=== PATIENT | male | born 1950 | race Caucasian/White ===

== ENCOUNTER 2019-10-02 06:59 | Outpatient (CLI) | payer OTHER, SELFPAY ==
[2019-10-02 08:19] LABS: Hemoglobin A1C 6.6 % (<5.7)
[2019-10-02 08:21] LABS: Alanine Aminotransferase 32 U/L (4-50); Albumin Level 4.3 g/dL (3.5-5.1); Alkaline Phosphatase 52 U/L (38-126); Aspartate Amino Transferase 27 U/L (17-59); Bilirubin,Total 0.4 mg/dL (0.2-1.3); Blood Urea Nitrogen 19 mg/dL (9-20); Calcium 9.4 mg/dL (8.4-10.2); Carbon Dioxide 28 mmol/L (22-30); Chloride 106 mmol/L (98-107); Cholesterol 174 mg/dL (0-200); Estimated Glomerular Filt Rate > 60; Glucose 124 mg/dL (75-110); HDL Direct 33 mg/dL; Potassium 3.8 mmol/L (3.4-5.0); Sodium 140 mmol/L (137-145); Triglycerides 322 mg/dL (<150)
[2019-10-02 08:32] LABS: LDL Cholesterol Direct 120 mg/dL
== END 2019-10-02 07:00 | disposition home or self-care (01) ==
PROVIDERS: PCP Family Medicine; Visit Provider Family Medicine
DX: D51.0 Vitamin B12 deficiency anemia due to intrinsic factor deficiency (principal); E03.9 Hypothyroidism, unspecified; E11.65 Type 2 diabetes mellitus with hyperglycemia; E78.2 Mixed hyperlipidemia; I10 Essential (primary) hypertension
CPT/HCPCS: 36415; 80053; 80061; 82607; 83036; 84443

== ENCOUNTER 2020-02-03 07:33 | Outpatient (CLI) | payer OTHER, SELFPAY ==
[2020-02-03 08:16] LABS: Alanine Aminotransferase 37 U/L (4-50); Albumin Level 4.6 g/dL (3.5-5.1); Alkaline Phosphatase 83 U/L (38-126); Aspartate Amino Transferase 29 U/L (17-59); Bilirubin,Total 0.5 mg/dL (0.2-1.3); Blood Urea Nitrogen 16 mg/dL (9-20); Calcium 9.6 mg/dL (8.4-10.2); Carbon Dioxide 29 mmol/L (22-30); Chloride 99 mmol/L (98-107); Cholesterol 212 mg/dL (0-200); Estimated Glomerular Filt Rate > 60; Glucose 120 mg/dL (75-110); HDL Direct 34 mg/dL; Potassium 3.9 mmol/L (3.4-5.0); Sodium 138 mmol/L (137-145); Triglycerides 516 mg/dL (<150)
[2020-02-03 08:27] LABS: LDL Cholesterol Direct 105 mg/dL
[2020-02-03 08:46] LABS: Creatinine Urine 12.5 mg/dL
[2020-02-03 08:58] LABS: Hemoglobin A1C 6.8 % (<5.7)
[2020-02-03 08:58] LABS: Microalbumin Urine Random < 6.0 mg/L (0-16.7)
== END 2020-02-03 07:34 | disposition home or self-care (01) ==
PROVIDERS: PCP Family Medicine; Visit Provider Family Medicine
DX: E11.9 Type 2 diabetes mellitus without complications (principal)
CPT/HCPCS: 36415; 80053; 80061; 82043; 83036

== ENCOUNTER 2020-05-07 06:56 | Outpatient (NON) | payer OTHER, SELFPAY ==
[2020-05-07 16:38] LABS: SARS-CoV-2 RNA PCR Negative
== END 2020-05-07 06:57 ==
PROVIDERS: Visit Provider Family Medicine
DX: Z20.828 Contact with and (suspected) exposure to other viral communicable diseases (principal)
CPT/HCPCS: 87635; C9803; U0003

== ENCOUNTER 2020-06-16 07:16 | Outpatient (CLI) | payer OTHER, SELFPAY | END 2020-06-16 07:17 | disposition home or self-care (01) | PROVIDERS: PCP Physician Assistant; Visit Provider Family Medicine | DX: Z12.5 Encounter for screening for malignant neoplasm of prostate (principal); E03.9 Hypothyroidism, unspecified | CPT/HCPCS: 36415; 84153; 84443 ==

== ENCOUNTER 2020-07-03 08:25 | Outpatient (CLI) | payer OTHER, SELFPAY | END 2020-07-03 08:26 | disposition home or self-care (01) | LOC: ANHAUDIO 08:27 | PROVIDERS: PCP Family Medicine; Visit Provider Family Medicine | DX: H91.90 Unspecified hearing loss, unspecified ear (principal) | CPT/HCPCS: 92557; 92567 ==

== ENCOUNTER 2020-08-18 11:00 | Outpatient (RCR) | payer OTHER, SELFPAY | END 2020-09-03 09:55 | disposition home or self-care (01) | LOC: ANHAUDIO 11:00 | PROVIDERS: PCP Family Medicine; Visit Provider Family Medicine | DX: Z46.1 Encounter for fitting and adjustment of hearing aid (principal) | CPT/HCPCS: 99199; V5160; V5261 ==

== ENCOUNTER 2020-11-02 08:12 | Outpatient (CLI) | payer OTHER, SELFPAY ==
[2020-11-02 08:39] LABS: Potassium 3.7 mmol/L (3.4-5.0)
[2020-11-02 08:41] LABS: Alanine Aminotransferase 28 U/L (4-50); Albumin Level 4.6 g/dL (3.5-5.1); Alkaline Phosphatase 57 U/L (38-126); Anion Gap 7 mmol/L (8-16); Aspartate Amino Transferase 26 U/L (17-59); Bilirubin,Total 0.3 mg/dL (0.2-1.3); Blood Urea Nitrogen 22 mg/dL (9-20); Calcium 9.2 mg/dL (8.4-10.2); Carbon Dioxide 28 mmol/L (22-30); Chloride 105 mmol/L (98-107); Cholesterol 182 mg/dL (0-200); Estimated Glomerular Filt Rate > 60; Glucose 128 mg/dL (75-110); HDL Direct 36 mg/dL; Sodium 140 mmol/L (137-145); Triglycerides 228 mg/dL (<150)
[2020-11-02 08:50] LABS: LDL Cholesterol Direct 113 mg/dL
[2020-11-02 10:22] LABS: Hemoglobin A1C 6.9 % (<5.7)
== END 2020-11-02 08:13 | disposition home or self-care (01) ==
PROVIDERS: PCP Family Medicine; Visit Provider Family Medicine
DX: E11.9 Type 2 diabetes mellitus without complications (principal)
CPT/HCPCS: 36415; 80053; 80061; 83036

== ENCOUNTER 2020-11-23 06:38 | Outpatient (CLI) | payer OTHER, SELFPAY ==
--- NOTE | 2020-11-23 | EST_ITS ---
Patient Info Name: Phill Fall Age: 70 years : 1950 Gender: Male Ht: 73 in Wt: 275 lbs BSA: 2.58 m2 HR: 68 bpm BP: 151 / 92 mmHg Heart Rhythm: Sinus Rhythm Exam Date: 11/23/2020 8:31 AM Exam Location: [facility] Stress Patient Status: Outpatient Admit Date: 11/23/2020 Staff Ordering Physician: Raphael Avila MD Attending Provider: RAPHAEL AVILA MD Exercise Technologist: Jazmin Echeverria RDCS Exercise Physician: Shahzad Barahona MD Exam Type: CA stress angel w NM Study Info Indications I49.3 - Ventricular premature depolarization R06.00 - Dyspnea, unspecified A regadenoson stress test was performed. Summary 1. Non-diagnostic ECG changes which did not meet strict criteria for reversible myocardial ischemia with <1mm horizontal ST depression. 2. No arrhythmias were observed during the examination. 3. Please correlate with nuclear medicine images, reported separately. 4. Stress-induced chest tightness improved with 50 mg IV aminophylline. Protocol: Lexiscan Stress ECG Details Stage: REST Duration (min): 5 min : 56 sec HR (bpm): 66 SBP (mmHg): 151 DBP (mmHg): 92 Stage: REST Duration (min): 11 min : 24 sec HR (bpm): 67 SBP (mmHg): 151 DBP (mmHg): 92 Stage: STAGE 1 Duration (min): 1 min : 0 sec HR (bpm): 78 SBP (mmHg): 147 DBP (mmHg): 103 Stage: RECOVERY Duration (min): 1 min : 0 sec HR (bpm): 76 SBP (mmHg): 153 DBP (mmHg): 85 Stage: RECOVERY Duration (min): 2 min : 0 sec HR (bpm): 74 SBP (mmHg): 153 DBP (mmHg): 85 Stage: RECOVERY Duration (min): 3 min : 0 sec HR (bpm): 72 SBP (mmHg): 159 DBP (mmHg): 86 Stage: RECOVERY Duration (min): 4 min : 0 sec HR (bpm): 76 SBP (mmHg): 159 DBP (mmHg): 86 Stage: RECOVERY Duration (min): 5 min : 0 sec HR (bpm): 74 SBP (mmHg): 162 DBP (mmHg): 89 Stage: RECOVERY Duration (min): 6 min : 0 sec HR (bpm): 73 SBP (mmHg): 162 DBP (mmHg): 89 Stage: RECOVERY Duration (min): 7 min : 0 sec HR (bpm): 72 SBP (mmHg): 173 DBP (mmHg): 90 Stage: RECOVERY Duration (min): 8 min : 0 sec HR (bpm): 72 SBP (mmHg): 173 DBP (mmHg): 90 Stage: RECOVERY Duration (min): 9 min : 0 sec HR (bpm): 71 SBP (mmHg): 167 DBP (mmHg): 86 Stage: RECOVERY Duration (min): 10 min : 0 sec HR (bpm): 69 SBP (mmHg): 167 DBP (mmHg): 86 Stage: RECOVERY Duration (min): 11 min : 0 sec HR (bpm): 69 SBP (mmHg): 166 DBP (mmHg): 87 Stage: RECOVERY Duration (min): 12 min : 0 sec HR (bpm): 70 SBP (mmHg): 166 DBP (mmHg): 87 Stage: RECOVERY Duration (min): 13 min : 0 sec HR (bpm): 67 SBP (mmHg): 164 DBP (mmHg): 88 Stage: RECOVERY Dur
--- NOTE | ~2020-11-23 | NM_ITS ---
EXAMINATION: NM angel stress w perfusion DATE: 11/23/2020 11:10 INDICATION: Dyspnea on exertion. TECHNIQUE: Rest images were obtained following intravenous administration of 11.22 mCi Tc99m tetrofos min (Myoview). The patient was infused intravenously with Lexiscan (regadenoson). Then, 33.3 mCi Tc99 m tetrofosmin (Myoview) was administered intravenously, and stress images were obtained. Data was rec onstructed into short axis and horizontal and vertical long axis SPECT images. Gated SPECT images wer e also obtained. COMPARISON: Myocardial perfusion imaging 05/10/2017 FINDINGS: There is no definite reversible or fixed perfusion abnormality to suggest ischemia or infar ction. There is no segmental wall motion abnormality. Left ventricular ejection fraction measures 5 4%. IMPRESSION: 1. No definite ischemia or infarct. 2. Normal left ventricular ejection fraction measuring 54%. Reviewed, dictated and finalized at location A.
== END 2020-11-23 06:39 | disposition home or self-care (01) ==
PROVIDERS: PCP Family Medicine; Visit Provider Specialist
DX: R06.00 Dyspnea, unspecified (principal); I49.3 Ventricular premature depolarization
CPT/HCPCS: 78452; 93017; A9502; J0280; J2785

== ENCOUNTER 2021-03-02 07:14 | Outpatient (CLI) | payer OTHER, SELFPAY ==
[2021-03-02 08:09] LABS: Alanine Aminotransferase 39 U/L (4-50); Albumin Level 4.4 g/dL (3.5-5.1); Alkaline Phosphatase 64 U/L (38-126); Anion Gap 12 mmol/L (8-16); Aspartate Amino Transferase 35 U/L (17-59); Bilirubin,Total 0.5 mg/dL (0.2-1.3); Blood Urea Nitrogen 18 mg/dL (9-20); Calcium 10.4 mg/dL (8.4-10.2); Carbon Dioxide 27 mmol/L (22-30); Chloride 99 mmol/L (98-107); Estimated Glomerular Filt Rate > 60; Glucose 148 mg/dL (65-110); Potassium 4.2 mmol/L (3.4-5.0); Sodium 138 mmol/L (137-145)
[2021-03-02 08:46] LABS: MALB Creatinine Ratio < 50.0 mg/g (0-30); Microalbumin Urine Random < 6.0 mg/L (0-16.7)
== END 2021-03-02 07:15 | disposition home or self-care (01) ==
PROVIDERS: PCP Family Medicine; Visit Provider Family Medicine
DX: E11.9 Type 2 diabetes mellitus without complications (principal); K31.84 Gastroparesis
CPT/HCPCS: 36415; 80053; 82043; 82607; 83036

== ENCOUNTER 2021-07-15 06:32 | Outpatient (CLI) | payer OTHER, SELFPAY ==
[2021-07-15 07:49] LABS: Alanine Aminotransferase 39 U/L (4-50); Albumin Level 4.8 g/dL (3.5-5.1); Alkaline Phosphatase 75 U/L (38-126); Anion Gap 8 mmol/L (8-16); Aspartate Amino Transferase 28 U/L (17-59); Bilirubin,Total 0.5 mg/dL (0.2-1.3); Blood Urea Nitrogen 14 mg/dL (9-20); Calcium 9.7 mg/dL (8.4-10.2); Carbon Dioxide 26 mmol/L (22-30); Chloride 104 mmol/L (98-107); Estimated Glomerular Filt Rate > 60; Glucose 186 mg/dL (65-110); Potassium 3.9 mmol/L (3.4-5.0); Sodium 138 mmol/L (137-145)
[2021-07-15 07:54] LABS: Hemoglobin A1C 7.4 % (<5.7)
[2021-07-15 08:21] LABS: Thyroid Stimulating Hormone Reflex 0.687 uIU/mL (0.465-4.68)
== END 2021-07-15 06:33 | disposition home or self-care (01) ==
LOC: ANHLAB 06:34
PROVIDERS: PCP Family Medicine; Visit Provider Family Medicine
DX: E78.5 Hyperlipidemia, unspecified (principal)
CPT/HCPCS: 36415; 80053; 83036; 84443

== ENCOUNTER → 2021-08-16 00:37 | Outpatient (CLI) | payer OTHER, SELFPAY ==
[2021-08-17 08:06] LABS: SARS-CoV-2 RNA PCR Negative
== END ==
PROVIDERS: PCP Family Medicine; Visit Provider Family Medicine
DX: R68.89 Other general symptoms and signs (principal); Z20.822 Contact with and (suspected) exposure to COVID-19
CPT/HCPCS: C9803; U0003; U0005

== ENCOUNTER 2021-10-05 07:48 | Outpatient (RCR) | payer OTHER, SELFPAY ==
[2021-10-05 13:09] VITALS: BP 170/80; PULSE 81; RESP 20; TEMP 37; O2SAT 99
[2021-10-05] MEDS: ACETAMINOPHEN 325 MG TABLET 650 MG PO (13:13)
[2021-10-05] MEDS: diphenhydrAMINE HCl CAP 25 MG CAPSULE PO (13:13)
[2021-10-05] MEDS: FAMOTIDINE 20 MG TABLET PO (13:13)
[2021-10-05 14:43] VITALS: BP 162/80; PULSE 75; RESP 20; TEMP 36.8; O2SAT 98
== END 2021-10-05 16:00 ==
LOC: AMCINF 07:48
PROVIDERS: PCP Family Medicine; Referring Provider Family Medicine; Visit Provider Internal Medicine Hematology & Oncology
DX: U07.1 COVID-19 (principal); I12.9 Hypertensive chronic kidney disease with stage 1 through stage 4 chronic kidney disease, or unspecified chronic kidney disease; I25.10 Atherosclerotic heart disease of native coronary artery without angina pectoris; E11.9 Type 2 diabetes mellitus without complications; N18.9 Chronic kidney disease, unspecified
CPT/HCPCS: A9270; M0247; Q0247

== ENCOUNTER 2021-11-15 06:52 | Outpatient (CLI) | payer OTHER, SELFPAY ==
[2021-11-15 08:10] LABS: Hemoglobin A1C 6.7 % (<5.7)
== END 2021-11-15 06:53 | disposition home or self-care (01) ==
LOC: ANHLAB 06:54
PROVIDERS: PCP Family Medicine; Visit Provider Family Medicine
DX: E11.9 Type 2 diabetes mellitus without complications (principal)
CPT/HCPCS: 36415; 83036

== ENCOUNTER 2022-02-07 09:34 | Outpatient (CLI) | payer OTHER, SELFPAY ==
--- NOTE | ~2022-02-07 | CT_ITS ---
EXAMINATION: CT soft tissue neck w con DATE: 02/07/2022 10:04 INDICATION: Recurrent parotiditis. TECHNIQUE: Computed tomography (CT) of the neck was performed with 75 mL Omnipaque 300 intravenous co ntrast. Automated exposure control and iterative reconstruction technique were employed. The dose-gordon gth product was 660.62 mGy-cm. COMPARISON: Neck CT 03/29/2016 FINDINGS: There is chronic fat stranding superficial to the parotid glands bilaterally. There is no s ialolith. There are no pathologically enlarged lymph nodes. There is plaque in the proximal internal carotid arteries with 0% stenosis relative to normal distal artery lumen diameters. There are likely changes of ocular lens replacement surgeries. There are changes of anterior fusion procedure from C5 to C7. There is moderate cervical spondylosis. IMPRESSION: 1. Normal parotid glands. No sialolith. Reviewed, dictated and finalized at location A.
[2022-02-07 09:57] LABS: Estimated Glomerular Filt Rate > 60
== END 2022-02-07 09:35 | disposition home or self-care (01) ==
LOC: ANHIMG 09:36
PROVIDERS: PCP Family Medicine; Visit Provider Otolaryngology
DX: K11.1 Hypertrophy of salivary gland (principal); K11.23 Chronic sialoadenitis
CPT/HCPCS: 70491; Q9967

== ENCOUNTER 2022-02-18 05:50 | Outpatient (CLI) | payer OTHER, SELFPAY ==
[2022-02-18 07:32] LABS: Basophils Absolute Auto 0.1 K/mm3 (0.0-0.1); Basophils Percent Auto 0.9 % (0.2-1.2); Eosinophils Absolute Auto 0.4 K/mm3 (0-0.3); Eosinophils Percent Auto 4.6 % (0-4.4); Hematocrit 48.3 % (42.0-52.0); Hemoglobin 15.6 g/dL (14.0-18.0); Immature Granulocyte Absolute 0.22 K/mm3 (0.00-0.031); Immature Granulocyte Percent A 2.5 % (0-0.5); Lymphocytes Absolute Auto 2.36 K/mm3 (0.9-3.2); Lymphocytes Percent Auto 26.5 % (18.3-44.2); Mean Corpuscular HGB Conc 32.3 g/dl (32-36); Mean Corpuscular Hemoglobin 28.6 pg (26-34); Mean Corpuscular Volume 88.6 fl (80-100); Mean Platelet Volume 9.4 fl (7.4-10.4); Monocytes Absolute Auto 0.8 K/mm3 (0.1-0.6); Monocytes Percent Auto 9.2 % (2.6-8.5); Neutrophils Percent Auto 56.3 % (45.5-73.1); Platelet Count Result 232 k/mm3 (150-375); Red Blood Count 5.45 M/mm3 (4.6-6.20); White Blood Count 8.9 K/mm3 (4.5-10.0)
[2022-02-18 07:40] LABS: Alanine Aminotransferase 36 U/L (6-50); Albumin Level 4.5 g/dL (3.5-5.1); Alkaline Phosphatase 64 U/L (38-126); Anion Gap 7 mmol/L (8-16); Aspartate Amino Transferase 31 U/L (17-59); Bilirubin,Total 0.5 mg/dL (0.2-1.3); Blood Urea Nitrogen 23 mg/dL (9-20); Calcium 9.2 mg/dL (8.4-10.2); Carbon Dioxide 28 mmol/L (22-30); Chloride 104 mmol/L (98-107); Estimated Glomerular Filt Rate > 60; Glucose 130 mg/dL (65-110); Potassium 3.8 mmol/L (3.4-5.0); Sodium 139 mmol/L (137-145)
[2022-02-18 08:38] LABS: Erythrocyte Sedimentation Rate 3 mm/hr (0-20)
== END 2022-02-18 05:51 | disposition home or self-care (01) ==
PROVIDERS: PCP Family Medicine; Referring Provider Otolaryngology
DX: R68.2 Dry mouth, unspecified (principal); R60.0 Localized edema
CPT/HCPCS: 36415; 80053; 85025; 85303; 85306; 85652; 86038

== ENCOUNTER 2022-03-01 07:56 | Outpatient (CLI) | payer OTHER, SELFPAY | END 2022-03-01 07:57 | disposition home or self-care (01) | LOC: ANHAUDIO 07:58 | PROVIDERS: PCP Family Medicine; Visit Provider Otolaryngology | DX: H90.3 Sensorineural hearing loss, bilateral (principal); H93.13 Tinnitus, bilateral | CPT/HCPCS: 92557; 92567 ==

== ENCOUNTER 2022-03-09 06:44 | Outpatient (CLI) | payer OTHER, SELFPAY ==
[2022-03-09 08:10] LABS: Hemoglobin A1C 7.2 % (<5.7)
[2022-03-09 08:14] LABS: Alanine Aminotransferase 37 U/L (6-50); Albumin Level 4.6 g/dL (3.5-5.1); Alkaline Phosphatase 61 U/L (38-126); Anion Gap 12 mmol/L (8-16); Aspartate Amino Transferase 33 U/L (17-59); Bilirubin,Total 0.5 mg/dL (0.2-1.3); Blood Urea Nitrogen 19 mg/dL (9-20); Calcium 9.8 mg/dL (8.4-10.2); Carbon Dioxide 25 mmol/L (22-30); Chloride 101 mmol/L (98-107); Cholesterol 213 mg/dL (0-200); Estimated Glomerular Filt Rate > 60; Glucose 138 mg/dL (65-110); HDL Direct 37 mg/dL; Sodium 138 mmol/L (137-145); Triglycerides 340 mg/dL (<150)
[2022-03-09 08:24] LABS: LDL Cholesterol Direct 124 mg/dL
[2022-03-09 08:35] LABS: Creatinine Urine 11.1 mg/dL
[2022-03-09 09:23] LABS: Microalbumin Urine Random < 6.0 mg/L (0-16.7)
== END 2022-03-09 06:45 | disposition home or self-care (01) ==
LOC: ANHLAB 06:46
PROVIDERS: PCP Family Medicine; Visit Provider Family Medicine
DX: E11.9 Type 2 diabetes mellitus without complications (principal); K31.84 Gastroparesis
CPT/HCPCS: 36415; 80053; 80061; 82043; 83036; 84443

== ENCOUNTER 2022-05-06 11:44 | Outpatient (CLI) | payer OTHER, SELFPAY ==
[2022-05-12 17:59] LABS: SS-A <1.0; SS-B <1.0
== END 2022-05-06 11:45 | disposition home or self-care (01) ==
PROVIDERS: PCP Family Medicine
DX: R68.2 Dry mouth, unspecified (principal); R60.0 Localized edema; G47.33 Obstructive sleep apnea (adult) (pediatric)
CPT/HCPCS: 36415; 86235

== ENCOUNTER 2022-06-29 07:09 | Outpatient (CLI) | payer OTHER, SELFPAY ==
[2022-06-29 08:36] LABS: Hemoglobin A1C 7.1 % (<5.7)
== END 2022-06-29 07:10 | disposition home or self-care (01) ==
LOC: ANHLAB 07:10
PROVIDERS: PCP Family Medicine; Visit Provider Family Medicine
DX: E08.40 Diabetes mellitus due to underlying condition with diabetic neuropathy, unspecified (principal)
CPT/HCPCS: 36415; 83036